=== PATIENT | male | born 1985 | race Caucasian/White ===

== ENCOUNTER 2024-09-25 14:02 | Outpatient (CLI) | payer OTHER, SELFPAY ==
--- NOTE | ~2024-09-25 | XR_ITS ---
XR femur RT min 2V Ordering provider: Bladimir Capellan, History: . Pain in right thigh . Comparison: None. FINDINGS: BONES: No acute fracture or dislocation. Small bony fragment seen near to the greater trochanter and ischium may be muscular ossification. JOINT SPACES: Normal. SOFT TISSUES: Normal. IMPRESSION: No acute osseous abnormality of the right femur. Reviewed, dictated and finalized at location A.
== END 2024-09-25 14:03 | disposition home or self-care (01) ==
PROVIDERS: PCP Family Medicine; Visit Provider Family Medicine
DX: M79.651 Pain in right thigh (principal)
CPT/HCPCS: 73552